=== PATIENT | female | born 1995 | race Hispanic/Latino ===

== ENCOUNTER 2016-10-24 16:55 | Emergency (ER) | payer OTHER ==
[~2016-10-24] VITALS: Ht 154.9 cm; Wt 56.7 kg
[~2016-10-24 16:55] MED LIST: CYCLOBENZAPRINE5 M2 PO; IBUPROFEN800 M1 PO
[2016-10-24 17:01] VITALS: BP 133/80
[2016-10-24] MEDS ORDERED: CYCLOBENZAPRINE10 M1 PO (18:12)
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
[2016-10-24] MEDS ORDERED: HAIR, SKIN & N1 EACH PO (18:34)
[2016-10-24] MEDS ORDERED: DEPO-PROVE150 MG/11 IM (18:34)
== END 2016-10-24 18:35 ==
LOC: ERH 16:55
DX: S05.12XA Contusion of eyeball and orbital tissues, left eye, initial encounter (principal); V18.0XXA Pedal cycle driver injured in noncollision transport accident in nontraffic accident, initial encounter; Y92.9 Unspecified place or not applicable; Y93.9 Activity, unspecified